=== PATIENT | male | born 1970 | race Caucasian/White ===

== ENCOUNTER 2020-02-28 09:38 | Emergency (ER) | payer BC, SELFPAY ==
[2020-02-28 09:44] VITALS: BP 137/91; PULSE 76; RESP 20; TEMP 36.8; O2SAT 100
--- NOTE | 2020-02-28 09:51 | ED.DENTAL ---
HPI - Dental/Oral General Chief complaint: Dental/Oral Stated complaint: tooth pain Time Seen by Provider: 02/28/20 09:53 Source: patient and RN notes reviewed Mode of arrival: ambulatory Limitations: no limitations History of Present Illness HPI Narrative: This is a 49 years old male presents to the office for an evaluation of left upper dental pain for the last four day. He had root canal and crown put in on his affected teeth a couple years ago and it was doing fine until about four days ago. He has an appointment with dentist on Sunday; however he was told to come here to get antibiotic. He also could not sleep due to pain. He has tried many otc pain relief with no relief. Related Data Home Medications Medication Instructions Recorded Confirmed irbesartan 150 mg PO DAILY 02/28/20 02/28/20 Allergies Allergy/AdvReac Type Severity Reaction Status Date / Time calcium Allergy Unknown Itching Verified 02/28/20 09:59 folic acid Allergy Unknown Itching Verified 02/28/20 09:59 multivitamin with minerals Allergy Unknown Itching Verified 02/28/20 09:59 Review of Systems Review of Systems: Narrative: CONSTITUTIONAL: Denies fever, chills ENT: Denies opening his mouth or difficulty swallowing CARDIOVASCULAR: Denies chest pain RESPIRATORY: Denies dyspnea, wheezing GASTROINTESTINAL: Denies abdominal pain, nausea SKIN: Denies rash MUSCULOSKELETAL: Denies acute back pain NEUROLOGIC: Denies lightheaded All other systems reviewed are negative, except as documented in HPI. [facility] Past Medical History Medical History (Updated 02/28/20 @ 10:10 by TIMBO Bowden) HTN (hypertension) Comments At time of signature, I agree with nursing past medical, surgical, social and family history. There is no relevant family history pertinent to the presenting complaint. Exam Narrative: Exam Narrative: GENERAL: This is a well-nourished, well-developed patient, in no apparent distress. EYES: Sclera and conjunctivae normal ENT: External ears normal. Nose and lips normal. Airway patent.The tooth in question is very carious and the gum is swollen and tender around it. There is no facial swelling, cervical or submandibular lymphadenopathy. The patient appears uncomfortable and in pain. CARDIOVASCULAR: Regular rate and rhythm without murmurs, gallops, or rubs. RESPIRATORY: Clear to auscultation. Breath sounds equal bilaterally. No wheezes, rales, or rhonchi. GASTROINTESTINAL: Abdomen soft, non-tender, nondistended. Bowel sounds are active. No hepato-splenomegaly, or palpable masses. No guarding. SKIN: warm, intact with no suspicious lesions or rash, good texture and turgor. NEURO: awake, alert, and oriented to person, place and time. There were no obvious focal neurologic abnormalities. Course Vital Signs Vital signs: Vital Signs Temperature 98.2 F 02/28/20 09:44 Pulse Rate 76 02/28/20 09:44 Respiratory Rate 20 02/28/20 09:44 Blood Pressure 137/91 H 02/28/20 09:44 Pulse Oximetry 100 02/28/20 09:44 Temperature 98.2 F 02/28/20 09:44 Pulse Rate 76 02/28/20 09:44 Respiratory Rate 20 02/28/20 09:44 Blood Pressure 137/91 H 02/28/20 09:44 Pulse Oximetry 100 02/28/20 09:44 MDM - Dental/Oral MDM Narrative Medical decision making narrative: Discharge instructions reviewed with patient, as well as provided in writing per nursing staff. The instructions also include specific and strict return/GO TO THE ER as well as f/u information. All questions have been answered, and the patient deny any further questions with discharge and discharge plan. Elevated BP noted: patient is informed that they may have pre-hypertension or hypertension based on a blood pressure reading in the department. I recommend the patient call the primary care provider listed on their discharge instructions or a physician of their choice this week to arrange follow-up for further evaluation of possible pre-hypertension or hyperten
== END 2020-02-28 10:05 | disposition home or self-care (01) ==
PROVIDERS: Emergency Provider Nurse Practitioner; PCP Internal Medicine
DX: K02.9 Dental caries, unspecified (principal); I10 Essential (primary) hypertension
CPT/HCPCS: 99213; G0463